=== PATIENT | female | born 1955 | race Caucasian/White ===

== ENCOUNTER → 2017-04-27 | Outpatient (CLI) | payer OTHER ==
[~2017-04-27] MED LIST: ASCO10004 PO; CALC300T5 PO; CHOL10002 PO; DIPH1TAB6 PO; GABA100C PO; HYDR2TAB29 PO; HYDR2TAB40 PO; HYDR4TAB48 PO; IBUP-1222 PO; LACT1CAP37 PO; LEVO175T2 PO; LEVO500T47 PO; LOPE2TAB28 PO; MAGN400T26 PO; METH-356 PO; METH500T97 PO; MILK1TAB PO; MILK200C2 PO; MULT-6 PO; PANC1CAP PO; POLY17PO5 PO; POTA25TA4 PO; SELE200T10 PO; SENN1TAB7 PO; TEMA15CA6 PO; TRAM-47 PO; UBID100C41 PO; [UNRECOGNIZED DRUG - OTHER] PO; [UNRECOGNIZED DRUG - OTHER] PO; [UNRECOGNIZED DRUG - OTHER] PO; [UNRECOGNIZED DRUG - OTHER] PO; [UNRECOGNIZED DRUG - OTHER] PO; [UNRECOGNIZED DRUG - OTHER] SC; curcumin PO; d-mannose PO; niacin PO; vitamin b12 IM
== END | disposition home or self-care (01) ==
LOC: RAD 08:19
PROVIDERS: ATTEND Internal Medicine
DX: D16.7 Benign neoplasm of ribs, sternum and clavicle (principal); C78.2 Secondary malignant neoplasm of pleura; Z85.3 Personal history of malignant neoplasm of breast
CPT/HCPCS: 71260; 74177; 78306; A9503

== ENCOUNTER → 2017-11-09 | Outpatient (CLI) | payer OTHER ==
[~2017-11-09] MED LIST changes: +OMNIPAQUE 350 MG/ML, 100ML BOTTLE ONE
== END | disposition home or self-care (01) ==
LOC: CFH 11:40
PROVIDERS: ATTEND Internal Medicine
DX: C50.211 Malignant neoplasm of upper-inner quadrant of right female breast (principal); C50.812 Malignant neoplasm of overlapping sites of left female breast; C78.2 Secondary malignant neoplasm of pleura; J98.11 Atelectasis; K76.9 Liver disease, unspecified; Z90.49 Acquired absence of other specified parts of digestive tract
CPT/HCPCS: 71260; 74177; 78306; Q9967; A9503

== ENCOUNTER → 2017-12-13 | Outpatient (CLI) | payer OTHER | END | disposition home or self-care (01) | LOC: CFH 13:27 | PROVIDERS: ATTEND Internal Medicine | DX: C50.211 Malignant neoplasm of upper-inner quadrant of right female breast (principal); M47.896 Other spondylosis, lumbar region | CPT/HCPCS: 74160; Q9967 ==

== ENCOUNTER 2018-08-24 06:29 | Day surgery (SDC) | payer OTHER ==
[2018-08-22 12:17] LABS: MICROSCOPIC NOT IND
[2018-08-22 12:28] LABS: CULTURE INDICATED? NO
[~2018-08-24] VITALS: Ht 160 cm; Wt 62.3 kg
[~2018-08-24 06:29] MED LIST changes: +ALPHA CRS PO; +CA C1TAB59 PO; +CAL MA PLUS PO; +CURCUMIN PO; -METH-356 PO; +METH10TA2 PO; -OMNIPAQUE 350 MG/ML, 100ML BOTTLE ONE; +PANCREATIN PO; +SENN-177 PO; -SENN1TAB7 PO; +UBID1CAP43 PO; +VITA1CAP PO; +[UNRECOGNIZED DRUG - CODE] PO; +[UNRECOGNIZED DRUG - CODE] PO; +[UNRECOGNIZED DRUG - CODE] PO; +[UNRECOGNIZED DRUG - OTHER] PO; +[UNRECOGNIZED DRUG - OTHER] PO; +[UNRECOGNIZED DRUG - OTHER] PO; +[UNRECOGNIZED DRUG - OTHER] PO; +[UNRECOGNIZED DRUG - OTHER] PO; +[UNRECOGNIZED DRUG - OTHER] PO; +[UNRECOGNIZED DRUG - OTHER] PO; +[UNRECOGNIZED DRUG - OTHER] PO; +[UNRECOGNIZED DRUG - REMARK] XX
[2018-08-24] MEDS ORDERED: LACTATED RINGERS 1,000 ML IV SCH (06:46)
[2018-08-24 07:09] VITALS: BP 137/78
[2018-08-24] MEDS ORDERED: BACITRACIN 50,000 UNIT ONE (07:42)
[2018-08-24] MEDS ORDERED: BUPIVACAINE/PF 0.25% ONE (07:42)
[2018-08-24] MEDS ORDERED: CEFAZOLIN 1,000 MG ONE ×2 (07:42→08:07)
[2018-08-24] MEDS ORDERED: MIDAZOLAM 1 MG/ML, 2ML ONE (07:46)
[2018-08-24] MEDS ORDERED: FENTANYL PF 100 MCG/2ML ONE ×2 (07:48→10:07)
[2018-08-24] MEDS ORDERED: GENTAMICIN 80 MG/2 ML INTVENT ONE (08:00)
[2018-08-24] MEDS ORDERED: PROPOFOL 10 MG/ML, 20ML ONE (08:07)
[2018-08-24] MEDS ORDERED: DEXAMETHASONE 4 MG/ML, 1ML ONE (08:07)
[2018-08-24] MEDS ORDERED: SUCCINYLCHOLINE 20 MG/ML, 10ML ONE (08:07)
[2018-08-24] MEDS ORDERED: ROCURONIUM 10 MG/ML,10ML ONE (08:07)
[2018-08-24] MEDS ORDERED: BUPIVACAINE/PF-EPI 0.5% 1:200K ONE (08:13)
[2018-08-24] MEDS ORDERED: CEFAZOLIN 1,000 MG IM ONE (08:22)
[2018-08-24] MEDS ORDERED: BUPIVACAINE/PF-EPI 0.5% 1:200K INFIL ONE (08:22)
[2018-08-24] MEDS ORDERED: BACITRACIN 50,000 UNIT IM ONE (08:22)
[2018-08-24] MEDS ORDERED: GENTAMICIN 80 MG/2 ML IV ONE (08:22)
[2018-08-24] MEDS ORDERED: BUPIVACAINE/PF 0.25% INFIL ONE (08:22)
[2018-08-24] MEDS ORDERED: HYDROmorphone 2 MG/ML, 1ML IVPush PRN ×2 (09:00→10:30)
[2018-08-24] MEDS ORDERED: OXYcodone 5 MG/5 ML ORAL.SOL UDC PO PRN (09:00)
[2018-08-24] MEDS ORDERED: PROMETHAZINE 25 MG/ML, 1ML IV PRN (09:00)
[2018-08-24] MEDS ORDERED: MEPERIDINE/PF 25MG/0.5ML IVPush PRN ×2 (09:00→10:30)
[2018-08-24] MEDS: FENTANYL PF 100 MCG/2ML IV PRN ×3 (10:10→10:26)
[2018-08-24] MEDS ORDERED: OXYcodone 5 MG/5 ML ORAL.SOL UDC ONE (10:16)
[2018-08-24] MEDS: OXYcodone 5 MG/5 ML ORAL.SOL UDC PO PRN ×2 (10:17→12:18)
[2018-08-24] MEDS ORDERED: DIPHENHYDRAMINE 50 MG/ML, 1ML ONE (12:06)
[2018-08-24] MEDS ORDERED: DIPHENHYDRAMINE 50 MG/ML, 1ML IVPush PRN (12:30)
== END 2018-08-24 13:55 | disposition home or self-care (01) ==
LOC: OUT 06:29
PROVIDERS: ATTEND Plastic Surgery
DX: T85.44XA Capsular contracture of breast implant, initial encounter (principal); R59.1 Generalized enlarged lymph nodes; Z85.3 Personal history of malignant neoplasm of breast; Z87.891 Personal history of nicotine dependence; Z79.82 Long term (current) use of aspirin; Y83.8 Other surgical procedures as the cause of abnormal reaction of the patient, or of later complication, without mention of misadventure at the time of the procedure; Y92.89 Other specified places as the place of occurrence of the external cause; Z88.8 Allergy status to other drugs, medicaments and biological substances
CPT/HCPCS: 19366; 19371; 36590; 38500; 81003; 88305; 93005; C1729; J0330; J0690; J1100; J1200; J1580; J2250; J2704; J3010; J3490; J7120

== ENCOUNTER 2018-08-26 11:55 | Emergency (ER) | payer OTHER ==
[~2018-08-26] VITALS: Ht 160 cm; Wt 62.7 kg
[2018-08-26 12:07] VITALS: BP 135/83
[2018-08-26] MEDS ORDERED: SODIUM CHLORIDE FLUSH 10ML SYR IVF ONE (12:30)
--- NOTE | 2018-08-26 12:52 | NUR ---
THIS IS A 63 Y/O FEMALE S/P OP FOR LYMPH REMOVAL THAT WAS UNSUCCESSFUL DUE TO VASCULATURE BEING PRESENT AROUND LYMPH NODE. PT SINCE SURGERY HAS REPORTED THAT PAIN HAS GOTTEN MUCH MORE SEVERE AND HAS HAD TO TAKE PAIN MEDICATIONS WHICH SHE NEVER DOES. PT REPORTS VERY PAINFUL TO TOUCH. PT HAS ERYTHEMA PRESENT AROUND SURGICAL SITE WHERE LYMPH NODE WAS ATTEMPTED TO BE REMOVED. PT IN BED AT THIS TIME, AWAITING FURTHER ORDERS. PT MADE NPO.
[2018-08-26 13:01] LABS: BASOPHILS # (AUTO) 0.03 x10^3/uL (0-0.1); BASOPHILS % (AUTO) 0 % (0-1); EOSINOPHILS # (AUTO) 0.08 x10^3/uL (0-0.4); EOSINOPHILS % (AUTO) 1 % (1-7); LYMPHOCYTES # (AUTO) 1.06 x10^3/uL (1-3.4); LYMPHOCYTES % (AUTO) 14 % (22-44); MD NO; MEAN CORPUSCULAR HEMOGLOBIN 32.8 pg (27.0-34.8); MEAN CORPUSCULAR VOLUME 93.7 fL (80-100); MONOCYTES # (AUTO) 0.82 x10^3/uL (0.2-0.8); MONOCYTES % (AUTO) 11 % (2-9); NEUTROPHILS # (AUTO) 5.78 x10^3/uL (1.8-6.8); NEUTROPHILS % (AUTO) 74 % (42-75); PLATELET COUNT 282 x10^3/uL (130-400); RED BLOOD COUNT 3.89 x10^6/uL (3.82-5.3); RED CELL DISTRIBUTION WIDTH 13.1 % (9.6-15.2)
[2018-08-26 13:11] LABS: INTERNATIONAL NORMALIZED RATIO 1.04 (0.93-1.1); PROTHROMBIN TIME 10.9 Seconds (9.6-11.5)
[2018-08-26 13:14] LABS: ALANINE AMINOTRANSFERASE 33 U/L (12-78); ALBUMIN 3.7 g/dL (3.4-5.0); ANION GAP 4 mmol/L (5-15); CALCIUM 8.6 mg/dL (8.5-10.1); CHLORIDE 97 mmol/L (98-107)
[2018-08-26 13:16] LABS: ALKALINE PHOSPHATASE 90 U/L (45-117); BILIRUBIN,TOTAL 0.5 mg/dL (0.2-1.0); TOTAL PROTEIN 7.5 g/dL (6.4-8.2)
[2018-08-26] MEDS ORDERED: DIPHENHYDRAMINE 25 MG CAPSULE ONE (13:56)
[2018-08-26] MEDS ORDERED: HYDROcodone/APAP 7.5-325MG/15ML UDC ONE (13:56)
[2018-08-26] MEDS ORDERED: HYDROcodone/APAP 7.5-325MG/15ML UDC PO ONE (14:00)
[2018-08-26] MEDS ORDERED: DIPHENHYDRAMINE 25 MG CAPSULE PO ONE (14:00)
== END 2018-08-26 14:13 | disposition home or self-care (01) ==
LOC: ED 13:56
DX: L03.221 Cellulitis of neck (principal); K21.9 Gastro-esophageal reflux disease without esophagitis; Z85.3 Personal history of malignant neoplasm of breast
CPT/HCPCS: 36415; 71045; 80053; 83605; 85025; 85610; 85730; 87040; 99284

== ENCOUNTER 2018-09-06 07:50 | Outpatient (CLI) | payer OTHER | END 2018-09-06 23:59 | disposition home or self-care (01) | LOC: ROC 07:50 | PROVIDERS: ATTEND Radiology Radiation Oncology | DX: Z08 Encounter for follow-up examination after completed treatment for malignant neoplasm (principal) | CPT/HCPCS: 99213; G0463 ==

== ENCOUNTER → 2018-09-13 | Outpatient (CLI) | payer OTHER ==
[~2018-09-13] MED LIST changes: +GADOBUTROL 7.5 MMOL/7.5 ML PFS ONE
== END | disposition home or self-care (01) ==
LOC: CFH 13:17
PROVIDERS: ATTEND Radiology Radiation Oncology
DX: C77.9 Secondary and unspecified malignant neoplasm of lymph node, unspecified (principal); G31.9 Degenerative disease of nervous system, unspecified
CPT/HCPCS: 70543; 70553; A9585

== ENCOUNTER 2018-09-18 07:40 | Outpatient (CLI) | payer OTHER ==
[~2018-09-18 07:40] MED LIST changes: -GADOBUTROL 7.5 MMOL/7.5 ML PFS ONE
== END 2018-09-18 23:59 | disposition home or self-care (01) ==
LOC: ROC 07:40
PROVIDERS: ATTEND Radiology Radiation Oncology
DX: C77.0 Secondary and unspecified malignant neoplasm of lymph nodes of head, face and neck (principal)
CPT/HCPCS: 99212; G0463

== ENCOUNTER → 2018-11-21 | Outpatient (CLI) | payer OTHER ==
[~2018-11-21] MED LIST changes: +GADOBUTROL 7.5 MMOL/7.5 ML PFS ONE
== END | disposition home or self-care (01) ==
LOC: RAD 12:17
PROVIDERS: ATTEND Radiology Radiation Oncology
DX: C77.9 Secondary and unspecified malignant neoplasm of lymph node, unspecified (principal); C79.81 Secondary malignant neoplasm of breast; R90.82 White matter disease, unspecified; M79.89 Other specified soft tissue disorders; R51 Headache
CPT/HCPCS: 70543; 70553; A9585

== ENCOUNTER → 2019-07-09 | Outpatient (CLI) | payer OTHER ==
[~2019-07-09] MED LIST changes: -GADOBUTROL 7.5 MMOL/7.5 ML PFS ONE
== END | disposition home or self-care (01) ==
LOC: CVU 09:44
PROVIDERS: ATTEND Internal Medicine Cardiovascular Disease
DX: I10 Essential (primary) hypertension (principal); R09.89 Other specified symptoms and signs involving the circulatory and respiratory systems; R06.02 Shortness of breath
CPT/HCPCS: 93306; 93880

== ENCOUNTER → 2019-08-01 | Outpatient (CLI) | payer OTHER | END | disposition home or self-care (01) | LOC: RAD 12:46 | PROVIDERS: ATTEND Internal Medicine | DX: J98.4 Other disorders of lung (principal); Q79.1 Other congenital malformations of diaphragm | CPT/HCPCS: 76000 ==

== ENCOUNTER 2019-08-27 11:14 | Outpatient (CLI) | payer OTHER ==
[2019-08-27] MEDS ORDERED: OMNIPAQUE 350 MG/ML, 100ML BOTTLE ONE (11:59)
== END 2019-08-27 23:59 | disposition home or self-care (01) ==
LOC: RAD 11:14
PROVIDERS: ATTEND Internal Medicine
DX: C50.211 Malignant neoplasm of upper-inner quadrant of right female breast (principal); C50.812 Malignant neoplasm of overlapping sites of left female breast; J98.4 Other disorders of lung
CPT/HCPCS: 71260; 74177; 78306; A9503; Q9967

== ENCOUNTER → 2019-11-07 | Outpatient (CLI) | payer OTHER ==
[~2019-11-07] MED LIST changes: +OMNIPAQUE 350 MG/ML, 100ML BOTTLE ONE
== END | disposition home or self-care (01) ==
LOC: RAD 11:06
PROVIDERS: ATTEND Internal Medicine
DX: C50.211 Malignant neoplasm of upper-inner quadrant of right female breast (principal); C50.812 Malignant neoplasm of overlapping sites of left female breast; C79.51 Secondary malignant neoplasm of bone; J84.10 Pulmonary fibrosis, unspecified; M43.8X4 Other specified deforming dorsopathies, thoracic region
CPT/HCPCS: 71260; 74177; 78306; A9503; Q9967

== ENCOUNTER → 2020-01-20 | Outpatient (CLI) | payer OTHER, MEDICARE | END | disposition home or self-care (01) | LOC: RAD 11:13 | PROVIDERS: ATTEND Internal Medicine | DX: C79.51 Secondary malignant neoplasm of bone (principal); C50.812 Malignant neoplasm of overlapping sites of left female breast; C50.211 Malignant neoplasm of upper-inner quadrant of right female breast; J84.10 Pulmonary fibrosis, unspecified; J98.11 Atelectasis; Z90.49 Acquired absence of other specified parts of digestive tract | CPT/HCPCS: 71260; 74177; 78306; A9503; Q9967 ==

== ENCOUNTER → 2020-05-04 | Outpatient (CLI) | payer OTHER, MEDICARE ==
[~2020-05-04] MED LIST changes: +ASCO100018 PO; -ASCO10004 PO
== END | disposition home or self-care (01) ==
LOC: RAD 10:27
PROVIDERS: ATTEND Internal Medicine
DX: C79.51 Secondary malignant neoplasm of bone (principal); C50.211 Malignant neoplasm of upper-inner quadrant of right female breast; M43.8X4 Other specified deforming dorsopathies, thoracic region; R91.1 Solitary pulmonary nodule; J98.4 Other disorders of lung; J98.11 Atelectasis; Z90.49 Acquired absence of other specified parts of digestive tract; Q79.1 Other congenital malformations of diaphragm
CPT/HCPCS: 71260; 74177; 78306; A9503; Q9967

== ENCOUNTER 2020-06-23 15:15 | Emergency (ER) | payer OTHER, MEDICARE ==
[~2020-06-23] VITALS: Ht 162.6 cm; Wt 74.8 kg
[~2020-06-23 15:15] MED LIST changes: -OMNIPAQUE 350 MG/ML, 100ML BOTTLE ONE
[2020-06-23] MEDS ORDERED: NORT25CA78 PO (16:15)
[2020-06-23] MEDS ORDERED: OMEP-110 PO (16:15)
[2020-06-23] MEDS ORDERED: AMLO2.5T5 PO (16:15)
--- NOTE | 2020-06-23 16:57 | NUR ---
Working to obtain IV access.
[2020-06-23 17:10] LABS: BASOPHILS % (AUTO) 1 % (0-1); EOSINOPHILS % (AUTO) 2 % (1-7); LYMPHOCYTES % (AUTO) 11 % (22-44); MEAN CORPUSCULAR HEMOGLOBIN 33.7 pg (27.0-34.8); MEAN CORPUSCULAR HGB CONC 34.4 g/dL (32.4-35.8); MEAN PLATELET VOLUME 7.5 fL (7.4-10.4); MONOCYTES % (AUTO) 9 % (2-9); NEUTROPHILS % (AUTO) 77 % (42-75); PLATELET COUNT 346 x10^3/uL (130-400); RED BLOOD COUNT 3.62 x10^6/uL (3.82-5.3)
[2020-06-23 17:17] LABS: MD NO
[2020-06-23 17:20] LABS: ANION GAP 7 mmol/L (5-15); CALCIUM 9.3 mg/dL (8.5-10.1); CHLORIDE 101 mmol/L (98-107); CREATININE 0.67 mg/dL (0.55-1.02)
[2020-06-23 17:23] LABS: TROPONIN I < 0.015 ng/mL (0.000-0.045)
--- NOTE | 2020-06-23 17:42 | NUR ---
Admit order cancelled at this time, registration made aware, "I'll undone it now." Addendum: 06/23/20 at 1743 by VIVIEN "I'll undo it now."
[2020-06-23 17:51] LABS: FREE T4 (FREE THYROXINE) 1.27 ng/dL (0.76-1.46)
--- NOTE | 2020-06-23 17:52 | NUR ---
This RN called CT to inquire about status. "She's next on the list."
--- NOTE | 2020-06-23 18:02 | NUR ---
Late entry summary note: This pt has metastatic breast CA for which she is receiving treatment. Lymphadema on the left side, no IV or BPs on this side. Pt states her baseline HR is 102. Pt presents to the ER with HR of 115 down to 105. Pt wears 2L O2 at baseline, but denies diagnosis of COPD. Pt connected to all monitors upon arrival to room. at bedside. Pt ambulatory x1 to bathroom with steady gait. All needs met at this time.
--- NOTE | 2020-06-23 18:13 | NUR ---
Pt to imaging.
[2020-06-23] MEDS ORDERED: OMNIPAQUE 350 MG/ML, 75ML BOTTLE ONE (18:34)
--- NOTE | 2020-06-23 19:02 | NUR ---
Bedside report to ROSS [place].
--- NOTE | 2020-06-23 19:03 | NUR ---
report recieved from sridhar vargas. pt sitting comfortably in [facility], verbalizing she is ready to go home. pt aware of poc and agreeable
[2020-06-23 19:29] VITALS: BP 156/86
[2020-06-23] MEDS ORDERED: FUROSEMIDE 40 MG TABLET ONE (19:46)
[2020-06-23] MEDS ORDERED: POTASSIUM CHLORIDE 20 MEQ TAB.ER.PRT ONE (19:46)
--- NOTE | 2020-06-23 19:54 | NUR ---
PT MEDICATED PER EMAR, AWAITING D/C PAPERWORK
[2020-06-23] MEDS ORDERED: POTASSIUM CHLORIDE 20 MEQ TAB.ER.PRT PO ONE (20:00)
[2020-06-23] MEDS ORDERED: FUROSEMIDE 10 MG/ML ORAL SOL PO ONE (20:00)
== END 2020-06-23 20:42 | disposition home or self-care (01) ==
LOC: ED 17:10 → UNDOADMIN 17:37 → EDIP 17:37 → ED 20:42
DX: R00.2 Palpitations (principal); I44.7 Left bundle-branch block, unspecified; R55 Syncope and collapse; R07.89 Other chest pain; R00.0 Tachycardia, unspecified; M54.5 Low back pain; R94.31 Abnormal electrocardiogram [ECG] [EKG]
CPT/HCPCS: 36415; 71275; 80048; 83605; 83880; 84439; 84443; 84484; 85025; 87040; 93005; 99285; Q9967

== ENCOUNTER → 2020-07-28 | Outpatient (CLI) | payer OTHER, MEDICARE ==
[~2020-07-28] MED LIST changes: +AMLO2.5T5 PO; +NORT25CA78 PO; +OMEP-110 PO; +REGADENOSON 0.4 MG/5 ML SYRINGE ONE
== END | disposition home or self-care (01) ==
LOC: CFH 08:45
PROVIDERS: ATTEND Internal Medicine Cardiovascular Disease
DX: R07.9 Chest pain, unspecified (principal)
CPT/HCPCS: 78452; 93017; A9502; J2785

== ENCOUNTER → 2020-07-30 | Outpatient (CLI) | payer OTHER, MEDICARE ==
[~2020-07-30] MED LIST changes: +OMNIPAQUE 350 MG/ML, 100ML BOTTLE ONE; -REGADENOSON 0.4 MG/5 ML SYRINGE ONE
== END | disposition home or self-care (01) ==
LOC: RAD 10:48
PROVIDERS: ATTEND Internal Medicine
DX: C79.51 Secondary malignant neoplasm of bone (principal); C50.211 Malignant neoplasm of upper-inner quadrant of right female breast; C50.812 Malignant neoplasm of overlapping sites of left female breast; R91.1 Solitary pulmonary nodule
CPT/HCPCS: 71260; 74177; 78306; A9503; Q9967

== ENCOUNTER 2020-08-03 12:15 | Inpatient (IN) | payer OTHER, MEDICARE ==
[~2020-08-03] VITALS: Ht 160 cm; Wt 74.2 kg
[~2020-08-03 12:15] MED LIST changes: -OMNIPAQUE 350 MG/ML, 100ML BOTTLE ONE
--- NOTE | 2020-08-03 12:38 | NUR ---
PT REPORT FROM ROSS RU[place]. PT CARE TO BE ASSUMED. PT A&OX4, ABLE TO SPEAK IN COMPLETE SENTENCES; O2 SAT 100% ON 3L, PT REPORTS HOME O2 OF 2LNC, O2 DECREASED TO 2L, WILL TITRATE; CARDIAC MONITORING IN PROGRESS; IV 20G RT LATERAL AC AREA. PEDAL PULSES STRONG & REG BILAT; NO PEDAL EDEMA NOTED; PT STATES EMS REPORTED LE SWELLING
[2020-08-03 12:47] LABS: BASOPHILS % (AUTO) 1 % (0-1); EOSINOPHILS % (AUTO) 1 % (1-7); LYMPHOCYTES % (AUTO) 10 % (22-44); MEAN CORPUSCULAR HEMOGLOBIN 30.2 pg (27.0-34.8); MEAN CORPUSCULAR HGB CONC 33.5 g/dL (32.4-35.8); MONOCYTES % (AUTO) 7 % (2-9); NEUTROPHILS % (AUTO) 80 % (42-75); PLATELET COUNT 386 x10^3/uL (130-400); RED BLOOD COUNT 3.38 x10^6/uL (3.82-5.3); RED CELL DISTRIBUTION WIDTH 15.5 % (9.6-15.2)
[2020-08-03 12:48] LABS: MD NO
[2020-08-03] MEDS ORDERED: [UNRECOGNIZED DRUG - OTHER] (12:53)
[2020-08-03] MEDS ORDERED: METO25TA35 PO (12:53)
[2020-08-03] MEDS ORDERED: LEVO150T PO (12:53)
[2020-08-03] MEDS ORDERED: FLUT1DIS5 IH (12:53)
[2020-08-03] MEDS ORDERED: ALPR0.25 PO (12:53)
--- NOTE | 2020-08-03 12:54 | NUR ---
PT REFUSING ASA WITHOUT "GETTING SOMETHING IN MY STOMACH". LAST ORAL INTAKE 0800 TODAY.
[2020-08-03 12:59] LABS: ALBUMIN 3.3 g/dL (3.4-5.0); ANION GAP 6 mmol/L (5-15); CALCIUM 8.9 mg/dL (8.5-10.1); CHLORIDE 100 mmol/L (98-107); CREATININE 0.55 mg/dL (0.55-1.02)
[2020-08-03] MEDS ORDERED: PLEASE ENTER HEIGHT AND WEIGHT MC SCH (13:00)
[2020-08-03 13:04] LABS: TROPONIN I 0.018 ng/mL (0.000-0.045)
--- NOTE | 2020-08-03 13:09 | NUR ---
LESA DUFF NOTIFIED OF PT'S ASA REFUSAL. PER CRUZ, HOLD ASA FOR NOW.
--- NOTE | 2020-08-03 13:51 | NUR ---
DR MONTGOMERY AT BS.
--- NOTE | 2020-08-03 13:59 | NUR ---
SNACKS AND APPLE JUICE PROVIDED TO PT, PER HER REQUEST - OK'D PER DR MONTGOMERY. PT TO BE ADMITTED.
--- NOTE | 2020-08-03 14:27 | NUR ---
REPORT CALLED TO ROSS CARRENO FOR ROOM [id number]
[2020-08-03] MEDS ORDERED: ONDANSETRON ODT 4 MG PO PRN (14:30)
[2020-08-03] MEDS ORDERED: ENALAPRILAT 1.25 MG/ML, 2ML IVPush PRN (14:30)
[2020-08-03] MEDS ORDERED: POTASSIUM CHLORIDE 20 MEQ TAB.ER.PRT PO ONE (14:30)
[2020-08-03] MEDS ORDERED: hydrALAzine 20 MG/ML, 1ML IVPush PRN (14:30)
[2020-08-03] MEDS ORDERED: ONDANSETRON 2MG/ML, 2ML IVPush PRN (14:30)
[2020-08-03] MEDS ORDERED: ENOXAPARIN 40 MG/0.4 ML ONE (14:30)
--- NOTE | 2020-08-03 14:36 | NUR ---
HOSPITALIST STILL AT BS.
--- NOTE | 2020-08-03 14:48 | NUR ---
DIFFERENT HOSPITALIST NOW AT BS
[2020-08-03] MEDS: ENOXAPARIN 40 MG/0.4 ML SQ SCH (14:57)
[2020-08-03] MEDS: ASPIRIN 81 MG TABLET CHEW PO ONE (14:58)
[2020-08-03] MEDS ORDERED: POTASSIUM CHLORIDE 20 MEQ TAB.ER.PRT ONE (15:00)
--- NOTE | 2020-08-03 15:02 | NUR ---
LOVENOX AND K-DUR GIVEN PER EMAR. PT AWAITING TRANFER TO UNIT.
[2020-08-03 15:22] LABS: INTERNATIONAL NORMALIZED RATIO 1.16 (0.93-1.1); PROTHROMBIN TIME 12.4 Seconds (9.6-11.5)
[2020-08-03 17:02] VITALS: BP 127/84
[2020-08-03] MEDS: BUMETANIDE 1 MG TABLET PO SCH (17:03)
[2020-08-03] MEDS: METOPROLOL TARTRATE 50 MG TAB PO SCH (17:03)
[2020-08-03] MEDS ORDERED: METHOCARBAMOL 500 MG TABLET PO PRN (17:30)
[2020-08-03] MEDS ORDERED: IBUPROFEN 200 MG TABLET PO PRN (17:30)
[2020-08-03] MEDS: OMEPRAZOLE 20 MG CAPSULE.DR PO SCH (17:33)
[2020-08-03] MEDS ORDERED: ENOXAPARIN 30 MG/0.3 ML SQ SCH (18:00)
[2020-08-03] MEDS ORDERED: ADVAIR INH PRN (18:00)
[2020-08-03 20:57] VITALS: BP 114/78
[2020-08-03] MEDS ORDERED: NORTRIPTYLINE 25 MG CAPSULE PO SCH ×2 (21:00)
[2020-08-03 22:55] VITALS: BP 127/78
[2020-08-04] MEDS: METOPROLOL TARTRATE 50 MG TAB PO SCH ×2 (01:30→09:05)
[2020-08-04 01:31] VITALS: BP 130/81
[2020-08-04 04:50] LABS: BASOPHILS % (AUTO) 1 % (0-1); EOSINOPHILS % (AUTO) 4 % (1-7); LYMPHOCYTES % (AUTO) 19 % (22-44); MD NO; MEAN CORPUSCULAR HEMOGLOBIN 30.7 pg (27.0-34.8); MEAN CORPUSCULAR HGB CONC 33.1 g/dL (32.4-35.8); MEAN PLATELET VOLUME 7.4 fL (7.4-10.4); MONOCYTES % (AUTO) 12 % (2-9); NEUTROPHILS % (AUTO) 64 % (42-75); PLATELET COUNT 335 x10^3/uL (130-400); RED BLOOD COUNT 2.89 x10^6/uL (3.82-5.3); RED CELL DISTRIBUTION WIDTH 15.4 % (9.6-15.2)
[2020-08-04 05:03] LABS: CALCIUM 8.7 mg/dL (8.5-10.1); CHLORIDE 99 mmol/L (98-107); CREATININE 0.71 mg/dL (0.55-1.02)
[2020-08-04 05:14] LABS: ANION GAP 7 mmol/L (5-15)
[2020-08-04] MEDS ORDERED: LEVOTHYROXINE 150 MCG TABLET PO SCH (06:00)
[2020-08-04] MEDS ORDERED: OMEPRAZOLE 20 MG CAPSULE.DR PO SCH ×2 (06:00)
[2020-08-04 06:31] LABS: ALANINE AMINOTRANSFERASE 35 U/L (12-78); ALBUMIN 2.9 g/dL (3.4-5.0); ALKALINE PHOSPHATASE 229 U/L (45-117); BILIRUBIN,TOTAL 0.3 mg/dL (0.2-1.0); TOTAL PROTEIN 6.8 g/dL (6.4-8.2)
[2020-08-04 07:17] VITALS: BP 125/76
[2020-08-04] MEDS ORDERED: LEVOTHYROXINE 175 MCG TABLET PO SCH (09:00)
[2020-08-04] MEDS: BUMETANIDE 1 MG TABLET PO SCH (09:05)
[2020-08-04 09:09] VITALS: BP 134/90
[2020-08-04] MEDS ORDERED: SPIRONOLACTONE 25 MG TABLET ONE (09:14)
[2020-08-04] MEDS ORDERED: SPIRONOLACTONE 25 MG TABLET PO SCH (09:30)
[2020-08-04] MEDS ORDERED: BUMETANIDE 1 MG TABLET PO SCH (09:30)
[2020-08-04] MEDS: OMEPRAZOLE 20 MG CAPSULE.DR PO SCH (12:04)
[2020-08-04] MEDS ORDERED: BUME1TAB21 PO (12:34)
[2020-08-04] MEDS ORDERED: SPIR25TA PO (12:34)
[2020-08-04] MEDS ORDERED: METO50TA82 PO (12:34)
[2020-08-04 14:24] VITALS: BP 109/72
[2020-08-04] MEDS: ENOXAPARIN 40 MG/0.4 ML SQ SCH (14:34)
[2020-08-07] MEDS ORDERED: LEVOTHYROXINE 175 MCG TABLET PO SCH (06:00)
== END 2020-08-04 15:30 | disposition home or self-care (01) | DRG 291 ==
LOC: ED 13:47 → EDIP 14:00 → SUATTDRO 14:20 → 5SO 15:22 → DCLOUNGE 08-04 15:04
PROVIDERS: ADMIT Hospitalist; ATTEND Hospitalist
DX: I50.23 Acute on chronic systolic (congestive) heart failure (principal); J96.21 Acute and chronic respiratory failure with hypoxia; C79.51 Secondary malignant neoplasm of bone; E87.1 Hypo-osmolality and hyponatremia; I42.9 Cardiomyopathy, unspecified; K21.9 Gastro-esophageal reflux disease without esophagitis; E20.9 Hypoparathyroidism, unspecified; D63.8 Anemia in other chronic diseases classified elsewhere; E89.0 Postprocedural hypothyroidism; I95.9 Hypotension, unspecified; I89.0 Lymphedema, not elsewhere classified; Z85.3 Personal history of malignant neoplasm of breast; Z90.710 Acquired absence of both cervix and uterus; Z90.49 Acquired absence of other specified parts of digestive tract; Z87.891 Personal history of nicotine dependence; Z79.899 Other long term (current) drug therapy; Z88.6 Allergy status to analgesic agent; Z88.4 Allergy status to anesthetic agent; Z91.030 Bee allergy status; Z88.5 Allergy status to narcotic agent; Z88.0 Allergy status to penicillin; Z88.2 Allergy status to sulfonamides; Z88.8 Allergy status to other drugs, medicaments and biological substances; Z91.048 Other nonmedicinal substance allergy status
CPT/HCPCS: 36415; 71045; 80048; 80053; 82040; 83735; 83880; 84100; 84443; 84484; 85025; 85610; 93005; 93306; 93356; 99285; G0378; J1650

== ENCOUNTER → 2020-08-17 | Outpatient (CLI) | payer OTHER, MEDICARE ==
[~2020-08-17] MED LIST changes: +ALPR0.25 PO; +BUME1TAB21 PO; +ENOXAPARIN 30 MG/0.3 ML SQ SCH; +FLUT1DIS5 IH; +GADOTERATE 7.5 MMOL/15ML SYR ONE; +LEVO150T PO; +LEVOTHYROXINE 175 MCG TABLET PO SCH; +METO25TA35 PO; +METO50TA82 PO; +NORTRIPTYLINE 25 MG CAPSULE PO SCH; +OMEPRAZOLE 20 MG CAPSULE.DR PO SCH; +SPIR25TA PO; +[UNRECOGNIZED DRUG - OTHER]
== END | disposition home or self-care (01) ==
LOC: SMMGROBB 08-14 10:25 → RAD 13:46 → EDSTATUS 14:00
PROVIDERS: ATTEND Internal Medicine
DX: C79.51 Secondary malignant neoplasm of bone (principal); C50.211 Malignant neoplasm of upper-inner quadrant of right female breast; C50.812 Malignant neoplasm of overlapping sites of left female breast; M48.54XA Collapsed vertebra, not elsewhere classified, thoracic region, initial encounter for fracture; M47.815 Spondylosis without myelopathy or radiculopathy, thoracolumbar region
CPT/HCPCS: 72157; 72158; A9575; 36415; 83735; 84100; 85610

== ENCOUNTER 2020-10-29 20:24 | Emergency (ER) | payer OTHER, MEDICARE ==
[~2020-10-29] VITALS: Ht 167.6 cm; Wt 70.5 kg
[~2020-10-29 20:24] MED LIST changes: -ENOXAPARIN 30 MG/0.3 ML SQ SCH; -GADOTERATE 7.5 MMOL/15ML SYR ONE; -LACT1CAP37 PO; +LACT1CAP47 PO; -LEVOTHYROXINE 175 MCG TABLET PO SCH; -NORTRIPTYLINE 25 MG CAPSULE PO SCH; -OMEPRAZOLE 20 MG CAPSULE.DR PO SCH
--- NOTE | 2020-10-29 20:26 | NUR ---
INITIAL PT CONTACT. PT BIBA FROM FOR "ABNORMAL EKG" PER EMS [facility], UNKNOWN IF NEW OR OLD. PT ALSO C/O RESTLESS LEGS, SCIATICA PAIN ON LEFT, INCREASED DEMAND FOR O2 (BASELINE 2L, NOW ON 3L), DISCOMFORT OF THE CHEST. SIGNIFICANT HX. PT SITTING UPRIGHT ON GURNEY, NADN, VSS. PT PLACED ON CONTINUOUS PULSE OX AND CARDIAC MONITORING. PT DENIES ANY NEEDS AT THIS TIME. CALL LIGHT AND BELONIGINGS WITHIN REACH, SPOUSE AT BEDSIDE. ERP AT BEDSIDE
[2020-10-29] MEDS ORDERED: SODIUM CHLORIDE FLUSH 10ML SYR IVF ONE (20:30)
--- NOTE | 2020-10-29 21:12 | NUR ---
PT AMBULATORY WITH STEADY GAIT WITH THIS RN AND SPOUSE TO BATHROOM
[2020-10-29 21:37] LABS: BASOPHILS % (AUTO) 1 % (0-1); EOSINOPHILS % (AUTO) 2 % (1-7); LYMPHOCYTES % (AUTO) 15 % (22-44); MEAN CORPUSCULAR HEMOGLOBIN 29.6 pg (27.0-34.8); MEAN CORPUSCULAR HGB CONC 34.6 g/dL (32.4-35.8); MEAN PLATELET VOLUME 7.3 fL (7.4-10.4); MONOCYTES % (AUTO) 7 % (2-9); NEUTROPHILS % (AUTO) 75 % (42-75); PLATELET COUNT 479 x10^3/uL (130-400); RED BLOOD COUNT 3.72 x10^6/uL (3.82-5.3); RED CELL DISTRIBUTION WIDTH 16.5 % (9.6-15.2)
[2020-10-29 21:45] LABS: ALANINE AMINOTRANSFERASE 38 U/L (12-78); ALBUMIN 3.5 g/dL (3.4-5.0); ANION GAP 7 mmol/L (5-15); CALCIUM 10.1 mg/dL (8.5-10.1); CHLORIDE 97 mmol/L (98-107); CREATININE 0.61 mg/dL (0.55-1.02)
[2020-10-29 21:50] LABS: ALKALINE PHOSPHATASE 342 U/L (45-117); BILIRUBIN,TOTAL 0.3 mg/dL (0.2-1.0); TOTAL PROTEIN 8.5 g/dL (6.4-8.2); TROPONIN I < 0.015 ng/mL (0.000-0.045)
--- NOTE | 2020-10-29 22:34 | NUR ---
HOSPITALIST AT BEDSIDE
--- NOTE | 2020-10-29 22:35 | NUR ---
PT TO CT
[2020-10-29] MEDS ORDERED: OMNIPAQUE 350 MG/ML, 75ML BOTTLE ONE (23:04)
--- NOTE | 2020-10-29 23:21 | NUR ---
PT AMBULATORY WITH STEADY GAIT WITH THIS RN AND SPOUSE TO BATHROOM
[2020-10-30] MEDS ORDERED: METHOCARBAMOL 500 MG TABLET ONE (00:58)
[2020-10-30] MEDS ORDERED: KETOROLAC 30 MG/1 ML ONE (00:58)
[2020-10-30] MEDS ORDERED: METHOCARBAMOL 500 MG TABLET PO ONE (01:00)
[2020-10-30] MEDS ORDERED: KETOROLAC 30 MG/1 ML IVPush ONE (01:00)
[2020-10-30 01:25] VITALS: BP 130/82
== END 2020-10-30 01:27 | disposition left against medical advice (07) ==
LOC: ED 21:27 → UNDOADMIN 22:18 → EDIP 22:18 → ED 10-30 01:27
DX: R07.2 Precordial pain (principal); R00.0 Tachycardia, unspecified; C50.919 Malignant neoplasm of unspecified site of unspecified female breast; M25.511 Pain in right shoulder; K21.9 Gastro-esophageal reflux disease without esophagitis; I50.9 Heart failure, unspecified
CPT/HCPCS: 36415; 71045; 71275; 80053; 83880; 84484; 85025; 93005; 93971; 96374; 99285; J1885; Q9967

== ENCOUNTER 2020-11-17 09:08 | Outpatient (CLI) | payer OTHER, MEDICARE ==
[2020-11-17] MEDS ORDERED: OMNIPAQUE 350 MG/ML, 100ML BOTTLE ONE (11:34)
== END 2020-11-17 23:59 | disposition home or self-care (01) ==
LOC: RAD 09:08
PROVIDERS: ATTEND Internal Medicine
DX: C79.51 Secondary malignant neoplasm of bone (principal); C78.7 Secondary malignant neoplasm of liver and intrahepatic bile duct; C50.812 Malignant neoplasm of overlapping sites of left female breast; C50.211 Malignant neoplasm of upper-inner quadrant of right female breast; R91.1 Solitary pulmonary nodule
CPT/HCPCS: 71260; 74177; 78306; A9503; Q9967

== ENCOUNTER 2020-12-26 23:46 | Inpatient (IN) | payer OTHER, MEDICARE ==
[~2020-12-26] VITALS: Ht 162.6 cm; Wt 69.2 kg
[2020-12-27] MEDS ORDERED: SODIUM CHLORIDE FLUSH 10ML SYR IVF ONE (00:30)
[2020-12-27] MEDS ORDERED: ONDANSETRON 2MG/ML, 2ML IVPush ONE (00:30)
[2020-12-27 00:46] LABS: MEAN CORPUSCULAR HGB CONC 33.2 g/dL (32.4-35.8); MEAN PLATELET VOLUME 8.2 fL (7.4-10.4); PLATELET COUNT 266 x10^3/uL (130-400); RED BLOOD COUNT 3.77 x10^6/uL (3.82-5.3); RED CELL DISTRIBUTION WIDTH 17.5 % (9.6-15.2)
[2020-12-27 00:57] LABS: ALANINE AMINOTRANSFERASE 69 U/L (12-78); ALBUMIN 3.3 g/dL (3.4-5.0); ANION GAP 6 mmol/L (5-15); CALCIUM 9.1 mg/dL (8.5-10.1); CHLORIDE 96 mmol/L (98-107); CREATININE 0.61 mg/dL (0.55-1.02)
[2020-12-27 01:02] LABS: ALKALINE PHOSPHATASE 480 U/L (45-117); BILIRUBIN,TOTAL 0.5 mg/dL (0.2-1.0); TOTAL PROTEIN 8.2 g/dL (6.4-8.2); TROPONIN I 0.078 ng/mL (0.000-0.045)
[2020-12-27 01:04] LABS: BAND#(MANUAL) 1.07 x10^3/uL; BANDS%(MANUAL) 12 % (0-7); EOS#(MANUAL) 0.09 x10^3/uL (0.0-0.4); EOS% (MANUAL) 1 % (1-7); LYMPH#(MANUAL) 1.34 x10^3/uL (1-3.4); LYMPHS% (MANUAL) 15 % (22-44); METAMYELOCYTES# (MANUAL) 0.18 x10^3/uL (0-0); METAMYELOCYTES% (MANUAL) 2 % (0-1); MONOS#(MANUAL) 0.27 x10^3/uL (0.3-2.7); MONOS% (MANUAL) 3 % (2-9); MYELOCYTES# (MANUAL) 0.09 x10^3/uL (0-0); MYELOCYTES% (MANUAL) 1 % (0-0); SEG#(MANUAL) 5.87 x10^3/uL (1.8-6.8); SEGS% (MANUAL) 66 % (42-75)
[2020-12-27 01:05] LABS: ANISOCYTOSIS 1+; POLYCHROMASIA 1+; STOMATOCYTES 1+
[2020-12-27 01:06] LABS: <PLATELET ESTIMATE> ADEQUATE
--- NOTE | 2020-12-27 01:38 | NUR ---
differential repairer: Pt to room via WC from lobby at this time.
--- NOTE | 2020-12-27 01:49 | NUR ---
pt to restroom via WC, full assist in restroom, UDAY
[2020-12-27] MEDS ORDERED: HYDROmorphone 2 MG/ML, 1ML ONE ×2 (02:11→03:59)
[2020-12-27] MEDS ORDERED: ASPIRIN 325 MG TABLET PO ONE (02:30)
[2020-12-27] MEDS: HYDROmorphone 2 MG/ML, 1ML IVPush PRN ×2 (02:36→04:03)
[2020-12-27] MEDS ORDERED: ONDANSETRON 2MG/ML, 2ML ONE (02:44)
[2020-12-27] MEDS ORDERED: ASPIRIN 325 MG TABLET ONE (02:44)
--- NOTE | 2020-12-27 03:28 | NUR ---
THROUGHPUT RN: HOSPITAL BED ORDERED FOR PT COMFORT, AWAITING BED AVAILABILITY FROM FLOOR.
[2020-12-27] MEDS ORDERED: HYDROmorphone 2 MG/ML, 1ML IVPush ONE (04:00)
--- NOTE | 2020-12-27 04:04 | NUR ---
Provider made aware of pt request for robaxin and nortriptyline
--- NOTE | 2020-12-27 06:40 | NUR ---
report to Raz HAWKINS
--- NOTE | 2020-12-27 06:46 | NUR ---
TOOK REPORT FROM WILBERTO Barclay RN, ASSUME CARE AT THIS TIME.
[2020-12-27] MEDS ORDERED: ONDANSETRON ODT 4 MG PO PRN (10:00)
[2020-12-27] MEDS ORDERED: ENOXAPARIN 40 MG/0.4 ML SQ SCH (10:00)
[2020-12-27] MEDS ORDERED: NITROGLYCERIN 0.4 MG BOTTLE (25 TABS) SL PRN ×2 (10:00)
[2020-12-27] MEDS ORDERED: HYDR2TAB40 PO (10:21)
[2020-12-27] MEDS ORDERED: METH-640 PO (10:21)
[2020-12-27] MEDS ORDERED: LEVO175T2 PO (10:29)
[2020-12-27] MEDS ORDERED: LEVO150T5 PO (10:29)
[2020-12-27] MEDS: TEMPLATE NON-FORMULARY MED. (Fluticasone/Salmeterol** (Advair 500-50 Diskus**) 1 PUFF) INH SCH ×2 (10:30→20:39)
[2020-12-27] MEDS ORDERED: PREGABALIN 100 MG CAPSULE PO PRN ×2 (10:30→12:30)
[2020-12-27] MEDS ORDERED: BUMETANIDE 1 MG TABLET PO PRN (10:30)
[2020-12-27] MEDS ORDERED: PREG100C49 PO (10:31)
[2020-12-27 11:25] VITALS: BP 113/66
[2020-12-27 11:36] LABS: TROPONIN I 0.068 ng/mL (0.000-0.045)
[2020-12-27] MEDS: HYDROmorphone 2MG TABLET PO SCH ×3 (11:42→20:39)
[2020-12-27] MEDS: METHOCARBAMOL 750 MG TABLET PO PRN ×2 (11:46→19:14)
[2020-12-27] MEDS: METOPROLOL SUCCINATE 100 MG TAB.ER.24H PO SCH (12:15)
[2020-12-27] MEDS ORDERED: ALBUTEROL SULFATE 2.5 MG/3 ML NPPB PRN (12:30)
[2020-12-27] MEDS ORDERED: IPRATROPIUM 0.5 MG/2.5 ML INHA NPPB SCH (12:30)
[2020-12-27 14:45] VITALS: BP 106/62
[2020-12-27 15:38] LABS: TROPONIN I 0.085 ng/mL (0.000-0.045)
[2020-12-27] MEDS ORDERED: HEPARIN 5,000 UNITS/ML, 1ML IV ONE (16:30)
[2020-12-27] MEDS ORDERED: HEPARIN 5,000 UNITS/ML, 1ML IV PRN (16:30)
[2020-12-27] MEDS: HEPARIN 25,000 UNITS/250ML PMX 250 ML IV PRN (17:57)
[2020-12-27 20:37] VITALS: BP 119/76
[2020-12-27] MEDS: NORTRIPTYLINE 25 MG CAPSULE PO SCH (20:39)
[2020-12-27] MEDS: POLYETHYLENE GLYCOL 17 GM PACKET PO SCH (21:53)
[2020-12-27] MEDS: PREGABALIN 100 MG CAPSULE PO PRN (21:54)
[2020-12-28] MEDS: HYDROmorphone 2MG TABLET PO SCH ×6 (00:21→20:20)
[2020-12-28 00:38] VITALS: BP 116/73
[2020-12-28 04:56] LABS: MEAN CORPUSCULAR HEMOGLOBIN 29.9 pg (27.0-34.8); MEAN CORPUSCULAR HGB CONC 33.4 g/dL (32.4-35.8); MEAN PLATELET VOLUME 8.2 fL (7.4-10.4); PLATELET COUNT 211 x10^3/uL (130-400); RED BLOOD COUNT 3.32 x10^6/uL (3.82-5.3); RED CELL DISTRIBUTION WIDTH 17.1 % (9.6-15.2)
[2020-12-28 04:58] LABS: ANION GAP 7 mmol/L (5-15); CALCIUM 8.9 mg/dL (8.5-10.1); CHLORIDE 97 mmol/L (98-107)
[2020-12-28 04:59] LABS: CREATININE 0.42 mg/dL (0.55-1.02)
[2020-12-28] MEDS: METOPROLOL SUCCINATE 100 MG TAB.ER.24H PO SCH (05:28)
[2020-12-28] MEDS: LEVOTHYROXINE 175 MCG TABLET PO SCH ×2 (05:29→05:30)
[2020-12-28 06:00] LABS: BAND#(MANUAL) 0.49 x10^3/uL; BANDS%(MANUAL) 7 % (0-7); EOS#(MANUAL) 0.07 x10^3/uL (0.0-0.4); EOS% (MANUAL) 1 % (1-7); METAMYELOCYTES# (MANUAL) 0.07 x10^3/uL (0-0); METAMYELOCYTES% (MANUAL) 1 % (0-1); MONOS#(MANUAL) 0.56 x10^3/uL (0.3-2.7); MONOS% (MANUAL) 8 % (2-9)
[2020-12-28 06:01] LABS: ANISOCYTOSIS 1+; LYMPHS% (MANUAL) 20 % (22-44); POLYCHROMASIA 1+; SEG#(MANUAL) 4.41 x10^3/uL (1.8-6.8); SEGS% (MANUAL) 63 % (42-75)
[2020-12-28 06:02] LABS: <PLATELET ESTIMATE> ADEQUATE; <PLT MORPHOLOGY> NORMAL PLT MORPH
[2020-12-28 08:00] VITALS: BP 116/71
[2020-12-28] MEDS: TEMPLATE NON-FORMULARY MED. (Fluticasone/Salmeterol** (Advair 500-50 Diskus**) 1 PUFF) INH SCH ×2 (09:00→20:11)
[2020-12-28] MEDS ORDERED: LEVOTHYROXINE 175 MCG TABLET PO SCH (09:00)
[2020-12-28 09:01] LABS: TROPONIN I 0.104 ng/mL (0.000-0.045)
[2020-12-28] MEDS: PREGABALIN 100 MG CAPSULE PO PRN ×2 (09:19→16:17)
[2020-12-28] MEDS: methylPREDNISolone SOD SUCC 125 MG/2 ML IVPush SCH ×2 (09:19→16:17)
[2020-12-28] MEDS: OMEPRAZOLE 20 MG CAPSULE.DR PO SCH (09:19)
[2020-12-28] MEDS: SPIRONOLACTONE 25 MG TABLET PO SCH (09:19)
[2020-12-28] MEDS: POLYETHYLENE GLYCOL 17 GM PACKET PO SCH ×2 (09:19→20:20)
[2020-12-28] MEDS: BUMETANIDE 0.25 MG/ML, 4ML IV SCH (09:22)
[2020-12-28] MEDS ORDERED: BISACODYL 10 MG SUPP PR PRN (10:30)
[2020-12-28 11:27] LABS: TROPONIN I 0.066 ng/mL (0.000-0.045)
[2020-12-28 15:10] VITALS: BP 113/75
[2020-12-28] MEDS: HEPARIN 25,000 UNITS/250ML PMX 250 ML IV PRN (16:16)
[2020-12-28 16:17] LABS: TROPONIN I 0.047 ng/mL (0.000-0.045)
[2020-12-28] MEDS: METHOCARBAMOL 750 MG TABLET PO PRN (16:17)
[2020-12-28 19:55] VITALS: BP 113/71
[2020-12-28] MEDS: NORTRIPTYLINE 25 MG CAPSULE PO SCH (20:20)
[2020-12-29] MEDS: METHOCARBAMOL 750 MG TABLET PO PRN (00:12)
[2020-12-29] MEDS: methylPREDNISolone SOD SUCC 125 MG/2 ML IVPush SCH ×2 (00:12→09:57)
[2020-12-29] MEDS: HYDROmorphone 2MG TABLET PO SCH ×3 (00:12→09:55)
[2020-12-29 00:16] VITALS: BP 118/76
[2020-12-29] MEDS: PREGABALIN 100 MG CAPSULE PO PRN ×2 (01:19→09:56)
[2020-12-29] MEDS ORDERED: METOPROLOL SUCCINATE 100 MG TAB.ER.24H PO SCH (06:00)
[2020-12-29 06:04] LABS: BASOPHILS % (AUTO) 0 % (0-1); EOSINOPHILS % (AUTO) 0 % (1-7); LYMPHOCYTES % (AUTO) 17 % (22-44); MEAN CORPUSCULAR HEMOGLOBIN 30.3 pg (27.0-34.8); MEAN CORPUSCULAR HGB CONC 33.6 g/dL (32.4-35.8); MEAN PLATELET VOLUME 8.1 fL (7.4-10.4); MONOCYTES % (AUTO) 3 % (2-9); NEUTROPHILS % (AUTO) 80 % (42-75); PLATELET COUNT 239 x10^3/uL (130-400); RED BLOOD COUNT 3.51 x10^6/uL (3.82-5.3)
[2020-12-29 06:27] LABS: ANION GAP 8 mmol/L (5-15); CALCIUM 8.9 mg/dL (8.5-10.1); CHLORIDE 93 mmol/L (98-107); CREATININE 0.53 mg/dL (0.55-1.02)
[2020-12-29 06:58] VITALS: BP 119/73
[2020-12-29] MEDS: TEMPLATE NON-FORMULARY MED. (Fluticasone/Salmeterol** (Advair 500-50 Diskus**) 1 PUFF) INH SCH ×2 (07:15→09:00)
[2020-12-29] MEDS ORDERED: LEVOTHYROXINE 150 MCG TABLET PO SCH (09:00)
[2020-12-29] MEDS: OMEPRAZOLE 20 MG CAPSULE.DR PO SCH (09:55)
[2020-12-29] MEDS: SPIRONOLACTONE 25 MG TABLET PO SCH (09:56)
[2020-12-29] MEDS: BUMETANIDE 0.25 MG/ML, 4ML IV SCH (09:57)
[2020-12-29] MEDS: POLYETHYLENE GLYCOL 17 GM PACKET PO SCH (09:57)
[2020-12-29] MEDS ORDERED: SACU1TAB PO (10:53)
[2020-12-29] MEDS ORDERED: SACUBITRIL/VALSARTAN 24MG-26MG TAB PO SCH (11:00)
[2020-12-29] MEDS ORDERED: DEXA4TAB66 PO (11:56)
[2020-12-29] MEDS ORDERED: HYDR2TAB40 PO (11:56)
[2020-12-29] MEDS ORDERED: FENT1PAT74 TD (11:56)
[2020-12-29] MEDS ORDERED: FENTANYL 12 MCG PATCH TD SCH (12:00)
[2020-12-29] MEDS ORDERED: HYDROmorphone 2MG TABLET PO SCH (13:00)
== END 2020-12-29 15:07 | disposition home or self-care (01) | DRG 281 ==
LOC: ED 12-27 00:16 → INTOOBSV 12-27 02:44 → EDIP 12-27 02:44 → 5SO 12-27 07:57 → OBSVTOIN 12-28 08:45
PROVIDERS: ADMIT Emergency Medicine; ATTEND Internal Medicine
DX: I50.23 Acute on chronic systolic (congestive) heart failure (principal); I21.A1 Myocardial infarction type 2; C79.9 Secondary malignant neoplasm of unspecified site; J96.10 Chronic respiratory failure, unspecified whether with hypoxia or hypercapnia; C50.919 Malignant neoplasm of unspecified site of unspecified female breast; I44.7 Left bundle-branch block, unspecified; G89.29 Other chronic pain; K59.09 Other constipation; F41.1 Generalized anxiety disorder; K21.9 Gastro-esophageal reflux disease without esophagitis; R07.89 Other chest pain; E03.9 Hypothyroidism, unspecified; F32.9 Major depressive disorder, single episode, unspecified; M54.42 Lumbago with sciatica, left side; Z85.3 Personal history of malignant neoplasm of breast; Z87.891 Personal history of nicotine dependence; Z90.13 Acquired absence of bilateral breasts and nipples; Z89.422 Acquired absence of other left toe(s); Z89.421 Acquired absence of other right toe(s); Z92.21 Personal history of antineoplastic chemotherapy; Z88.0 Allergy status to penicillin; Z88.2 Allergy status to sulfonamides; Z88.1 Allergy status to other antibiotic agents; Z88.5 Allergy status to narcotic agent; Z88.8 Allergy status to other drugs, medicaments and biological substances
CPT/HCPCS: 36415; 71045; 72192; 80048; 80053; 83880; 84484; 85025; 85520; 93005; 93306; 96374; 96376; 99285; G0378; J1170; J1650; J2930

== ENCOUNTER 2021-01-15 10:13 | Outpatient (CLI) | payer OTHER, MEDICARE ==
[~2021-01-15 10:13] MED LIST changes: +DEXA4TAB66 PO; +FENT1PAT74 TD; +LEVO150T5 PO; +METH-640 PO; +PREG100C49 PO; +SACU1TAB PO
== END 2021-01-15 23:59 | disposition home or self-care (01) ==
LOC: ROC 10:13
PROVIDERS: ATTEND Radiology Radiation Oncology
DX: Z02.9 Encounter for administrative examinations, unspecified (principal)